=== PATIENT | female | born 1990 | race Caucasian/White ===

== ENCOUNTER 2021-08-04 17:57 | Emergency (ER) | payer BC, SELFPAY ==
--- NOTE | ~2021-08-04 | XR_ITS ---
EXAMINATION: XR shoulder LT min 2V DATE: 08/04/2021 18:39 INDICATION: Left shoulder pain. TECHNIQUE: 4 views of left shoulder were obtained. COMPARISON: None. FINDINGS: Bone alignment is normal. No fracture. Joint spaces are well maintained. IMPRESSION: 1. Normal left shoulder. Reviewed, dictated and finalized at location E. [employer] INTELLIGENCE SPECIALIST IMPRESSION: 1. Normal left shoulder.
[2021-08-04 18:06] VITALS: BP 139/91; PULSE 97; RESP 14; TEMP 37.2; O2SAT 100
[2021-08-04 18:17] VITALS: BP 139/91; PULSE 97; RESP 14; TEMP 37.2; O2SAT 100
--- NOTE | 2021-08-04 18:22 | ED.UPPEXIN ---
HPI - Extremity Injury (Upper) General Chief Complaint: Extremity Injury, Upper Stated Complaint: Left Shoulder Pain Time Seen by Provider: 08/04/21 18:22 Source: patient History of Present Illness HPI narrative: PATIENT PRESENTS WITH LEFT SHOULDER PAIN. PATIENT STATES SHE HELPED MOVE HEAVY FURNITURE LAST WEEK AND FEEL SHE AY HAVE PULLED SOMETHING IN HER SHOULDER. NO RELIEF WITH IBUPROFEN. HX OF PROBLEMS WITH THAT SHOULDER IN THE PAST. Related Data Home Medications Medication Instructions Recorded Confirmed sertraline 100 mg PO DAILY 08/04/21 08/04/21 Allergies Allergy/AdvReac Type Severity Reaction Status Date / Time No Known Allergies Allergy Verified 08/04/21 18:16 Review of Systems Review of Systems: CONSTITUTIONAL: Denies fever, chills, or sweats. EYES: Denies visual changes, redness, or discharge. ENT: Denies rhinorrhea, congestion, sore throat, or otalgia. CARDIOVASCULAR: Denies chest pain, palpitations, or edema. RESPIRATORY: Denies cough or dyspnea. GASTROINTESTINAL: Denies abdominal pain, nausea, vomiting, or diarrhea. GENITOURINARY: Denies dysuria or hematuria. SKIN: Denies rash or itching. MUSCULOSKELETAL: Denies back pain, joint pain, or myalgia. NEUROLOGIC: Denies headache, numbness, or weakness. PSYCHIATRIC: Denies anxiety or depression. PMFSH Comments At time of signature, agree with nursing past medical, surgical, social and family history. There is no relevant family history pertinent to the presenting complaint Exam Narrative: GENERAL: Well-appearing, well-nourished, and in no acute distress. HEAD: Normocephalic, atraumatic. EYES: PERRLA and EOMI. ENT: Nares clear, no rhinorrhea or epistaxis. Mucous membranes moist. NECK: Supple. CHEST: Clear to auscultation. No respiratory distress. HEART: Regular rate and rhythm. No murmur heard. Normal peripheral pulses. ABDOMEN: Soft, nontender, nondistended, normal active bowel sounds. EXTREMITIES: Normal range of motion. No edema. NO SWELLING, BRUISING, SKIN CHANGES. SKIN INTACT. NORMAL RADIAL PULSE. NO DEFORMITY OF SHOULDER. NO CLAVICLE TENDERNESS. NORMAL UE SENSATION AND STRENGTH. ROM EVALUATED - CAN RAISE UE ABOVE SHOULDER, CAN ABDUCT, ADDUCT, EXTERNALLY ROTATE AND CAN INTERNALLY ROTATE AND RAISE THUMB UP THE SPINE. NO AC JOINT TENDERNESS, CAN CROSS ARM HORIZONTALLY AND PLACE HAND ON OPPOSITE SHOULDER, NO WINGING OF THE SCAPULA. SUPRASPINATUS APPEARS NORMAL WITH ARMS STRAIGHT OUT AT 30 DEGREES, THUMB DOWN , CAN ABDUCT AGAINST RESISTANCE. SKIN: Warm, dry, no rash. NEURO: No focal deficits. Alert and oriented x3. Fidelia Coma Scale Eye Opening: Spontaneous 4 [place] Coma Scale Motor: Obeys Commands 6 Fidel[place] Coma Scale Verbal: Oriented 5 Fidelia Coma Scale Total 15 Course Course Level of Care: Express Care Visit Vital Signs Vital signs: Vital Signs Temperature 37.2 C 08/04/21 18:06 Pulse Rate 97 08/04/21 18:06 Respiratory Rate 14 08/04/21 18:06 Blood Pressure 139/91 H 08/04/21 18:06 Pulse Oximetry 100 08/04/21 18:06 Temperature 37.2 C 08/04/21 18:17 Pulse Rate 97 08/04/21 18:17 Respiratory Rate 14 08/04/21 18:17 Blood Pressure 139/91 H 08/04/21 18:17 Pulse Oximetry 100 08/04/21 18:17 Addressed elevated BP today. Today's blood pressure higher than recommended range. 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 Currently patient denies headache, dizziness, vision changes, CP or shortness of breath. DISCUSSED WITH PATIENT, X-RAY FINDINGS AND THAT X-RAYS WERE NEGATIVE FOR FRACTURE OR DISLOCATIONS. X-RAYS CANNOT RULE OUT TENDON, LIGAMENT, OR SOFT TISSUE STRUCTURE INJURIES AND IF SYMPTOMS PERSIST OR WORSEN, FURTHER EVALUATION MAY BE WARRANTED FOR POTENTIAL IMAGING. ADVISED REST, ICE, COMPRESSION, AND ELEVATION. IF PRESCRIBED ANY MEDICATIONS, TAKE DIRECTED. IF PRESCRIBED MUSCLE RELAXERS, DO NOT DRINK ALCOHOL, DRIVE, OR OPERATE ANY HEAVY MACHINERY W
== END 2021-08-04 18:51 | disposition home or self-care (01) ==
PROVIDERS: Emergency Provider Nurse Practitioner Family; PCP Family Medicine
DX: S46.912A Strain of unspecified muscle, fascia and tendon at shoulder and upper arm level, left arm, initial encounter (principal); X50.0XXA Overexertion from strenuous movement or load, initial encounter; F41.9 Anxiety disorder, unspecified
CPT/HCPCS: 73030; 99213; A4565; G0463

== ENCOUNTER 2021-11-13 11:11 | Emergency (ER) | payer BC, SELFPAY ==
[2021-11-13 11:35] VITALS: BP 128/77; PULSE 95; RESP 16; TEMP 37; O2SAT 100
--- NOTE | 2021-11-13 12:43 | ED.EAR ---
HPI - Ear Problem General Chief complaint: Ear Stated complaint: ear infection Time Seen by Provider: 11/13/21 12:36 Source: patient and RN notes reviewed Mode of arrival: ambulatory Limitations: no limitations History of Present Illness HPI Narrative: 31-year-old female presents with concern for 1 week history of sinus congestion, pressure, drainage, pain. Reports she started having ear pain that became severe last night on the left side. Reports she has been using Sudafed with little relief. She denies fever, bodies, chills, sweats. Reports ibuprofen and heating pad improved her ear pain briefly. MD Complaint: ear pain Related Data Home Medications Medication Instructions Recorded Confirmed sertraline 100 mg tablet 100 mg PO DAILY 08/04/21 11/13/21 Allergies Allergy/AdvReac Type Severity Reaction Status Date / Time No Known Allergies Allergy Verified 11/13/21 11:47 Review of Systems Review of Systems: CONSTITUTIONAL: Denies malaise, chills, sweats, or fever. EYES: Denies visual changes, redness, or discharge. ENT: Reports rhinorrhea, congestion, sinus pain. Denies sore throat. Reports left ear pain CARDIOVASCULAR: Denies chest pain, palpitations, or edema. RESPIRATORY: Denies cough. Denies dyspnea. GASTROINTESTINAL: Denies abdominal pain, nausea, vomiting, diarrhea SKIN: Denies rash or itching. MUSCULOSKELETAL: Denies myalgia. NEUROLOGIC: Denies headache. All systems reviewed & are unremarkable except as noted in HPI and below PMFSH Comments At time of signature, agree with nursing past medical, surgical, social and family history. There is no relevant family history pertinent to the presenting complaint Exam Narrative: GENERAL: Well-appearing, well-nourished, and in no acute distress. HEAD: Normocephalic EYES: PERRLA, conjunctivae clear ENT: Nares clear, turbinates edematous. Mucous membranes moist. Right TM pearly santos with dull light reflex erythematous and slightly bulging; no tragal tenderness. Oropharynx not erythematous without lesions. Tonsils not enlarged and without exudate, no drooling, no hoarseness, no trismus, uvula midline. NECK: Supple. No lymphadenopathy CHEST: Clear to auscultation, breath sounds equal. No wheezing, rhonchi, rales, or stridor. No respiratory distress, speaks in full sentences. HEART: Regular rate and rhythm. No murmur heard. SKIN: Warm, dry, no rash. NEURO: Alert and oriented x3. PSYCH: Normal mood and affect Course Course Emergency Course: Patient is aware of diagnosis, understands and agrees to treatment plan. Anticipatory guidance given. Patient agrees to follow-up as directed and is aware of reasons to seek care at the emergency department. Portions of this record may have been created with voice recognition software Level of Care: Express Care Visit Vital Signs Vital signs: Vital Signs Temperature 98.6 F 11/13/21 11:35 Pulse Rate 95 11/13/21 11:35 Respiratory Rate 16 11/13/21 11:35 Blood Pressure 128/77 11/13/21 11:35 Pulse Oximetry 100 11/13/21 11:35 Oxygen Delivery Room Air 11/13/21 11:35 Temperature 98.6 F 11/13/21 11:35 Pulse Rate 95 11/13/21 11:35 Respiratory Rate 16 11/13/21 11:35 Blood Pressure 128/77 11/13/21 11:35 Pulse Oximetry 100 11/13/21 11:35 Oxygen Delivery Room Air 11/13/21 11:49 Reviewed. Medical Decision Making MDM Narrative Medical decision making narrative: Differential diagnosis considered: Vicente virus, strep pharyngitis, allergic rhinitis, upper respiratory tract infection, sinusitis, rhinosinusitis, nasopharyngitis. viral pharyngitis, otitis media, otitis externa, otitis effusion, cerumen impaction, foreign body. Exam findings show no acute concerns or changes; patient is non-toxic appearing and is in no distress. Patient is appropriate for outpatient treatment and follow-up. Vital Signs Vital Signs: Vital Signs Temperature 98.6 F 11/13/21 11:35 Pulse Rate 95 11/13/21 11:3
== END 2021-11-13 12:50 | disposition home or self-care (01) ==
PROVIDERS: Emergency Provider Nurse Practitioner
DX: H66.91 Otitis media, unspecified, right ear (principal); F41.9 Anxiety disorder, unspecified
CPT/HCPCS: 99213; G0463